=== PATIENT | female | born 2000 | race Caucasian/White ===

== ENCOUNTER 2018-05-06 18:47 | Emergency (ER) | payer OTHER ==
--- NOTE | 2018-05-06 18:55 | ER Report ---
History and Physical Time Seen By MD: 18:55 HPI/ROS CHIEF COMPLAINT: Kicked by horse HISTORY OF PRESENT ILLNESS: 17-year-old female patient presents to emergency room with complaint of being kicked by horse. Patient states that she was working with her horse when she kicks where in the thigh. Patient states that she has been having significant amounts of pain to the thigh. She states the pain is worse with ambulation. She states she did try to go up some stairs, was unable to due to the pain. She denies any numbness tingling to the foot, she denies any medication or other treatment. Patient has not tried ice her leg. Patient rates her pain while she is lying in bed a 3 out of 10. Allergies: Coded Allergies: pseudoephedrine (Verified Adverse Reaction, Unknown, 05/06/18) Complicates possible heart condition Home Meds Active Scripts Tramadol Hcl (TRAMADOL HCL) 50 Mg Tablet, 50 MG PO Q4-6H PRN for PAIN, #8 TAB Prov:JENNIFER COWAN [facility] 05/06/18 Cyclobenzaprine Hcl (CYCLOBENZAPRINE HCL) 10 Mg Tablet, 10 MG PO TID PRN for MUSCLE SPASMS, #12 TAB Prov:JENNIFER COWAN [facility] 05/06/18 Ketorolac Tromethamine (KETOROLAC TROMETHAMINE) 10 Mg Tab, 10 MG PO Q6H, #6 TAB Prov:JENNIFER COWAN [facility] 05/06/18 Reported Medications Norgestimate-Ethinyl Estradiol (TRINESSA) 1 Each Tablet, PO QDAY 05/06/18 Past Medical/Surgical History Patient has a past medical history of arrhythmias a child, frequent sinus infections, depression. Patient surgical history of mouth surgery. Reviewed Nurses Notes: Yes Constitutional Vital Sign - Last 24 Hours 05/06/18 05/06/18 05/06/18 05/06/18 18:53 18:56 19:17 19:47 Temp 97.8 Pulse 90 92 Resp 14 B/P (MAP) 141/107 141/107 (118) Pulse Ox 97 96 96 O2 Delivery Room Air Physical Exam General appearance: Alert no distress. Respiratory: Chest is non tender, lungs are clear to auscultation. Cardiac: Regular rate and rhythm. Musculoskeletal: Patient has no obvious tenderness to the lateral right thigh, there is no bruising noted. Patient has no tenderness to palpation to the knee. DIFFERENTIAL DIAGNOSIS: After history and physical exam differential diagnosis was considered for contusion, fracture, strain. Medical Decision Making EKG/Imaging Imaging Right femur Indication: Right femur pain after kicked by horse. Comparison: None available Findings: Two views of the right femur show no evidence of fracture, dislocation, or acute osseous abnormality. No bony lesion or periosteal abnormality. No joint effusion at the knee. There is no focal soft tissue abnormality. No evidence of radiopaque foreign body. IMPRESSION: 1. No acute osseous abnormality right femur. Report Dictated By: Milton Lugo at 05/06/2018 7:36 PM Report E-Signed By: Milton Lugo at 05/06/2018 7:38 PM ED Course/Re-evaluation ED Course Patient was admitted in exam room, history and physical were obtained. Differential diagnoses were considered. On examination there is no obvious tenderness to palpation. Patient had some redness, however there is no bruising. X-rays done of the right femur. That was negative. I discussed the findings with the patient. I did get her up and have her walk. She did have significant amounts of discomfort with ambulation. She states her pain went up to a 5-6 out of 10. We will go ahead and discharge patient home at this time. We will give her crutches to help with ambulation. She is to limit her weightbearing on that right leg by her pain. She is to alternate ice and heat with leg. She is taking Tylenol as if pain. We will give her an anti-inflammatory as well as a limited supply of pain medication and a muscle relaxer. She is return to the emergency room if condition worsens. She is follow-up with [facility] in 1-2 weeks if pain persists. Decision to Disposition Date: May 06, 2018 Decision to Disposition Time: 20:06 Depart Departure Latest Vital Signs Vital Signs Date Time Temp Pulse Resp B/P (MAP) Pulse Ox O2 Delivery O2 Flow Rate FiO2 05/06/18 19:47 92 96 05/06/18 18:56 141/107 (118) 05/06/18 18:53 97.8 14 Room Air Impression: Primary Impression: Contusion of leg Condition: Improved Disposition: HOME OR SELF-CARE New Scripts Tramadol Hcl (TRAMADOL HCL) 50 Mg Tablet 50 MG PO Q4-6H PRN for PAIN, #8 TAB Prov: JENNIFER COWAN 05/06/18 Cyclobenzaprine Hcl (CYCLOBENZAPRINE HCL) 10 Mg Tablet 10 MG PO TID PRN for MUSCLE SPASMS, #12 TAB Prov: JENNIEFR COWAN 05/06/18 Ketorolac Tromethamine (KETOROLAC TROMETHAMINE) 10 Mg Tab 10 MG PO Q6H, #6 TAB Prov: JENNIFER COWAN 05/06/18 Patient Instructions: Contusion in Adults (ED) Additional Instructions: Limit activity by pain. Ice the leg 2-3 times a day for 10-15 minutes. Use the crutches for the next several days to help with the pain. Return to the ER if condition worsens. Follow up with [facility] in the next 1-2 weeks. Take Tylenol or Ibuprofen as needed for pain. Problem Qualifiers Primary Impression: Contusion of leg Encounter type: initial encounter Laterality: right Qualified Codes: S80.11XA - Contusion of right lower leg, initial encounter JENNIFER COWAN [employer] May 06, 2018 18:55
[2018-05-06 18:56] VITALS: BP 141/107
[2018-05-06] MEDS ORDERED: NORG1TAB98 PO (19:09)
--- NOTE | 2018-05-06 19:41 | RADIOLOGY IMAGING REPORT ---
FACILITY: [facility] PATIENT NAME: Hattie Knott : 2000 MR: [id number] V: [id number] EXAM DATE: ORDERING PHYSICIAN: JENNIFER COWAN TECHNOLOGIST: Location: Patient: Hattie Knott : 2000 Visit/Account:[id number] Date of Sevice: 05/06/2018 Right femur Indication: Right femur pain after kicked by horse. Comparison: None available Findings: Two views of the right femur show no evidence of fracture, dislocation, or acute osseous abnormality. No bony lesion or periosteal abnormality. No joint effusion at the knee. There is no focal soft tissue abnormality. No evidence of radiopaque foreign body. IMPRESSION: 1. No acute osseous abnormality right femur. Report Dictated By: Milton Lugo at 05/06/2018 7:36 PM Report E-Signed By: Milton Lugo at 05/06/2018 7:38 PM WSN:[id number]
[2018-05-06] MEDS ORDERED: KET10 PO (20:02)
[2018-05-06] MEDS ORDERED: CYCL10TA29 PO (20:02)
[2018-05-06] MEDS ORDERED: TRAM-420 PO (20:05)
[2018-05-06] MEDS ORDERED: traMADol 50 MG TAB TH 2 TAB/BOTTLE PO ONE (20:10)
[2018-05-06] MEDS ORDERED: CYCLOBENZAPRINE HCL 10 MG TH PO ONE (20:10)
== END 2018-05-06 20:21 | disposition home or self-care (01) ==
LOC: ER 18:59
DX: S80.11XA Contusion of right lower leg, initial encounter (principal)
CPT/HCPCS: 73552; 99283; C9399

== ENCOUNTER 2018-11-09 18:31 | Inpatient (IN) | payer OTHER ==
[~2018-11-09] VITALS: Ht 165.1 cm; Wt 55.8 kg
[~2018-11-09 18:31] MED LIST: CYCL10TA29 PO; KET10 PO; NORG1TAB98 PO; TRAM-420 PO
--- NOTE | 2018-11-09 18:55 | ER Report ---
History and Physical Time Seen By MD: 18:55 Hx. of Stated Complaint: MOST PATIENT FELL OFF HORSE ONTO BACK AND HAD THE WIND KNOCKED OUT. NO LOC, NO NECK PAIN NOTED ON PALPATION. UPPER BACK PAIN IS BIGGEST COMPLAINT AT THIS TIME HPI/ROS CHIEF COMPLAINT: Back pain, left-sided pain HISTORY OF PRESENT ILLNESS: 17-year-old female patient presents to emergency room with complaint of back pain and left-sided pain. Patient states that she was riding her horse. She moved and spoke the horse. That caused the horse to run off. She'll falling off and landing on her back. Patient states she does have significant amounts of pain to the left side of her back as well as left ribs. Patient states she had the breath knocked out of her. She denies any head injury, any dizziness, any loss consciousness. Patient states she does not have any neck pain. Patient denies any pain to pelvis or hips. Patient denies any abdominal pain. REVIEW OF SYSTEMS: Respiratory: No cough, no dyspnea. Cardiovascular: No chest pain, no palpitations. Gastrointestinal: No vomiting, no abdominal pain. Musculoskeletal: As noted above Allergies: Coded Allergies: pseudoephedrine (Verified Adverse Reaction, Unknown, 05/06/18) Complicates possible heart condition Home Meds Reported Medications Norgestimate-Ethinyl Estradiol (TRINESSA) 1 Each Tablet, PO QDAY 05/06/18 Discontinued Scripts Tramadol Hcl (TRAMADOL HCL) 50 Mg Tablet, 50 MG PO Q4-6H PRN for PAIN, #8 TAB Prov:JENNIFER COWANP 05/06/18 Cyclobenzaprine Hcl (CYCLOBENZAPRINE HCL) 10 Mg Tablet, 10 MG PO TID PRN for MUSCLE SPASMS, #12 TAB Prov:JENNIFER COWANP 05/06/18 Ketorolac Tromethamine (KETOROLAC TROMETHAMINE) 10 Mg Tab, 10 MG PO Q6H, #6 TAB Prov:JENNIFER COWANP 05/06/18 Past Medical/Surgical History Patient has a past medical history of arrhythmia, depression. Patient has surgical history of mouth surgery. Reviewed Nurses Notes: Yes Constitutional Vital Sign - Last 24 Hours 11/09/18 11/09/18 11/09/18 11/09/18 18:38 18:46 19:00 19:01 Temp 98.8 Pulse 97 91 99 Resp 95 B/P (MAP) 107/67 105/69 (81) Pulse Ox 95 95 99 O2 Delivery Room Air 11/09/18 11/09/18 11/09/18 11/09/18 19:30 19:31 19:36 20:30 Pulse 98 104 B/P (MAP) 100/61 (74) 118/76 (90) Pulse Ox 93 92 11/09/18 21:00 O2 Flow Rate 2.0 Physical Exam General Appearance: The patient is alert, has no immediate need for airway protection and no current signs of toxicity. Respiratory: Chest is non tender, lungs are clear to auscultation. Patient has tenderness to the left ribs in the mid axillary line, patient also has tende rness to the left side of the upper back. Cardiac: regular rate and rhythm Gastrointestinal: Abdomen is soft and non tender, no masses, bowel sounds normal. Musculoskeletal: Neck: Neck is supple and non tender. Extremities have full range of motion and are non tender. Skin: No rashes or lesions. DIFFERENTIAL DIAGNOSIS: After history and physical exam differential diagnosis was considered for contusion, fracture, strain, sprain. Medical Decision Making Data Points Result Diagram: 11/09/18191311/09/181913 Laboratory Hematology Test 11/09/18 19:14 Red Blood Count 5.05 M/uL (4.17-5.56) Mean Corpuscular Volume 86.2 fL (80.0-96.0) Mean Corpuscular Hemoglobin 28.9 pg (26.0-33.0) Mean Corpuscular Hemoglobin Concent 33.5 g/dL (32.0-36.0) Red Cell Distribution Width 13.0 % (11.5-14.5) Mean Platelet Volume 8.4 fL (7.2-11.1) Neutrophils (%) (Auto) 72.0 % (39.4-72.5) Lymphocytes (%) (Auto) 22.2 % (17.6-49.6) Monocytes (%) (Auto) 4.6 % (4.1-12.4) Eosinophils (%) (Auto) 0.2 % (0.4-6.7) Basophils (%) (Auto) 1.0 % (0.3-1.4) Nucleated RBC Relative Count (auto) 0.0 /100WBC Neutrophils # (Auto) 6.3 K/uL (2.0-7.4) Lymphocytes # (Auto) 1.9 K/uL (1.3-3.6) Monocytes # (Auto) 0.4 K/uL (0.3-1.0) Eosinophils # (Auto) 0.0 K/uL (0.0-0.5) Basophils # (Auto) 0.1 K/uL (0.0-0.1) Nucleated RBC Absolute Count (auto) 0.00 K/uL Prothrombin Time 13.4 seconds (12.0-14.4) Prothromb Time International Ratio 1.01 Activated Partial Thromboplast Time 28 seconds (23-35) Sodium Level 139 mmol/L (137-145) Potassium Level 4.6 mmol/L (3.5-5.0) Chloride Level 105 mmol/L (98-107) Carbon Dioxide Level 26 mmol/L (22-31) Blood Urea Nitrogen 11 mg/dl (7-18) Creatinine 0.80 mg/dl (0.52-1.04) Glomerular Filtration Rate Calc > 60.0 Random Glucose 109 mg/dl (75-110) Calcium Level 9.4 mg/dl (8.4-10.2) Total Bilirubin 0.1 mg/dl (0.2-1.3) Aspartate Amino Transf (AST/SGOT) 32 U/L (0-35) Alanine Aminotransferase (ALT/SGPT) 38 U/L (0-56) Alkaline Phosphatase 64 U/L (0-126) Total Protein 7.7 g/dl (6.3-8.2) Albumin 4.5 g/dl (3.5-5.0) Amylase Level 53 U/L (0-110) Lipase 100 U/L (23-300) Human Chorionic Gonadotropin, Qual Negative (NEGATIVE) Chemistry Test 11/09/18 19:14 White Blood Count 8.8 k/uL (4.5-11.0) Red Blood Count 5.05 M/uL (4.17-5.56) Hemoglobin 14.6 g/dL (12.0-16.0) Hematocrit 43.5 % (34.0-47.0) Mean Corpuscular Volume 86.2 fL (80.0-96.0) Mean Corpuscular Hemoglobin 28.9 pg (26.0-33.0) Mean Corpuscular Hemoglobin Concent 33.5 g/dL (32.0-36.0) Red Cell Distribution Width 13.0 % (11.5-14.5) Platelet Count 274 K/uL (150-450) Mean Platelet Volume 8.4 fL (7.2-11.1) Neutrophils (%) (Auto) 72.0 % (39.4-72.5) Lymphocytes (%) (Auto) 22.2 % (17.6-49.6) Monocytes (%) (Auto) 4.6 % (4.1-12.4) Eosinophils (%) (Auto) 0.2 % (0.4-6.7) Basophils (%) (Auto) 1.0 % (0.3-1.4) Nucleated RBC Relative Count (auto) 0.0 /100WBC Neutrophils # (Auto) 6.3 K/uL (2.0-7.4) Lymphocytes # (Auto) 1.9 K/uL (1.3-3.6) Monocytes # (Auto) 0.4 K/uL (0.3-1.0) Eosinophils # (Auto) 0.0 K/uL (0.0-0.5) Basophils # (Auto) 0.1 K/uL (0.0-0.1) Nucleated RBC Absolute Count (auto) 0.00 K/uL Prothrombin Time 13.4 seconds (12.0-14.4) Prothromb Time International Ratio 1.01 Activated Partial Thromboplast Time 28 seconds (23-35) Glomerular Filtration Rate Calc > 60.0 Calcium Level 9.4 mg/dl (8.4-10.2) Total Bilirubin 0.1 mg/dl (0.2-1.3) Aspartate Amino Transf (AST/SGOT) 32 U/L (0-35) Alanine Aminotransferase (ALT/SGPT) 38 U/L (0-56) Alkaline Phosphatase 64 U/L (0-126) Total Protein 7.7 g/dl (6.3-8.2) Albumin 4.5 g/dl (3.5-5.0) Amylase Level 53 U/L (0-110) Lipase 100 U/L (23-300) Human Chorionic Gonadotropin, Qual Negative (NEGATIVE) Coagulation Test 11/09/18 19:14 Prothrombin Time 13.4 seconds Prothromb Time International Ratio 1.01 Activated Partial Thromboplast Time 28 seconds EKG/Imaging Imaging EXAMINATION: CT HEAD AND CERVICAL SPINE WITHOUT CONTRAST COMPARISON: None available HISTORY: Fell off horse. Dizziness. PROCEDURE: Noncontrast CT from the vertex through the skull base and multiplanar noncontrast cervical spine. One of the following dose optimization techniques was utilized in the performance of this exam: Automated exposure control; adjustment of the mA and/or kV according to the patient's size; or use of an iterative reconstruction technique. Specific details can be referenced in the facility's radiology CT exam operational policy. FINDINGS: CT head without contrast: Brain volume: Age-appropriate. Hemorrhage/extra-axial fluid: None. Mass effect/midline shift/edema: None. Ischemia: Ram-white differentiation is preserved. Ventricles and basal cisterns: Within normal limits. Posterior fossa: Negative. Vessels: Negative. Calvarium, skull base, and scalp: Negative. Visualized sinuses and orbits: Within normal limits. CT cervical spine without contrast: Alignment: Within normal limits. Cranio-cervical junction: Within normal limits. Vertebral bodies: Within normal limits. Posterior elements: Negative. Disc spaces: Negative. Hardware: None. Soft tissues: Negative. Visualized upper chest: As discussed on the chest CT. IMPRESSION: 1. Negative noncontrast head CT. 2. Negative cervical spine CT. 3. Thoracic trauma as discussed on the chest CT. Report was called to the referring clinician by the Imaging Cds Sales Advisor at 11/09/2018 9:09 PM. Report Dictated By: Obi Gutierres MD at 11/09/2018 8:41 PM Report E-Signed By: Obi Gutierres MD at 11/09/2018 9:12 PM ADDENDUM #1 ADDENDUM: Comparison: CT chest 11/09/2018 Report Dictated By: Randy Covarrubias DO at 11/09/2018 8:53 PM Report E-Signed By: Randy Covarrubias DO at 11/09/2018 8:54 PM ORIGINAL REPORT Technique: CHEST SINGLE AP HISTORY: fall with pain Comparison studies: None FINDINGS: Small left-sided apical pneumothorax is identified. The right lung is clear. The cardiac silhouette is unremarkable. Left-sided rib fractures are best seen on CT. IMPRESSION: 1. Small left apical pneumothorax. Report Dictated By: Randy Covarrubias DO at 11/09/2018 8:47 PM Report E-Signed By: Randy Covarrubias DO at 11/09/2018 8:50 PM Examination: CT chest, abdomen, and pelvis with contrast Comparison: None. History: fall with pain on the left chest and ribs Procedure: Multiplanar contrast-enhanced imaging of the chest, abdomen, and pelvis with 35 mL intravenous Isovue 370. One of the following dose optimization techniques was utilized in the performance of this exam: Automated exposure control; adjustment of the mA and/or kV according to the patient's size; or use of an iterative reconstruction technique. Specific details can be referenced in the facility's radiology CT exam operational policy. Findings: CT chest: Mediastinum: Cardiac chamber size is normal. No pericardial effusion. Main pulmonary artery size is normal. No thoracic aortic aneurysm. Age-appropriate anterior mediastinal thymus. No mediastinal hemorrhage. Lymph nodes: Negative. Lungs and pleura: Small left pneumothorax (less than 10%) probable small regions of peripheral contusion in the left lung. No consolidation or nodule is otherwise identified. No right-sided pneumothorax. No pulmonary edema or effusion. Airways: Negative. Diaphragm: Intact. CT abdomen and pelvis: Liver: Negative Gallbladder and biliary system: Negative Spleen: Negative Pancreas: Negative Adrenal glands: Negative Kidneys and urinary bladder: Negative Vessels: Negative Bowel and mesentery: Stomach is within normal limits. No small bowel obstruction. The appendix is incompletely visualized but there is no evidence of pericecal inflammation. Small amount of stool in the colon. No bowel or mesenteric inflammation. Pelvic organs: Negative. Free air/free fluid: None Lymph nodes: Negative Abdominal wall and subcutaneous tissues: Abdominal wall is intact. No focal abnormality within the visualized subcutaneous soft tissues. Osseous structures: Thoracolumbar spine: Negative Pelvic ring: Negative Ribs: Left lateral fifth rib nondisplaced fracture. Left sixth rib nondisplaced segmental fracture with lateral and posterior fractures. Left seventh rib segmental fracture with nondisplaced lateral and posterior fractures. Left posterior eighth rib nondisplaced fracture. Left posterior ninth rib no ndisplaced fractures. Left posterior 10th rib nondisplaced fracture. No right rib fracture. Visualized sternum, scapula, and clavicles: Negative IMPRESSION: 1. Left sixth, seventh, eighth, ninth, and 10th rib fractures with segmental fractures of the sixth and seventh ribs. 2. Small left pneumothorax with small regions of lung contusion. 3. No findings of trauma or acute disease in the abdomen or pelvis. Report was called to the referring clinician by the Imaging Cds Sales Advisor at 11/09/2018 9:09 PM. Report Dictated By: Obi Gutierres MD at 11/09/2018 8:52 PM Report E-Signed By: Obi Gutierres MD at 11/09/2018 9:11 PM EXAMINATION: CT HEAD AND CERVICAL SPINE WITHOUT CONTRAST COMPARISON: None available HISTORY: Fell off horse. Dizziness. PROCEDURE: Noncontrast CT from the vertex through the skull base and multiplanar noncontrast cervical spine. One of the following dose optimization techniques was utilized in the performance of this exam: Automated exposure control; adjustment of the mA and/or kV according to the patient's size; or use of an iterative reconstruction technique. Specific details can be referenced in the facility's radiology CT exam operational policy. FINDINGS: CT head without contrast: Brain volume: Age-appropriate. Hemorrhage/extra-axial fluid: None. Mass effect/midline shift/edema: None. Ischemia: Ram-white differentiation is preserved. Ventricles and basal cisterns: Within normal limits. Posterior fossa: Negative. Vessels: Negative. Calvarium, skull base, and scalp: Negative. Visualized sinuses and orbits: Within normal limits. CT cervical spine without contrast: Alignment: Within normal limits. Cranio-cervical junction: Within normal limits. Vertebral bodies: Within normal limits. Posterior elements: Negative. Disc spaces: Negative. Hardware: None. Soft tissues: Negative. Visualized upper chest: As discussed on the chest CT. IMPRESSION: 1. Negative noncontrast head CT. 2. Negative cervical spine CT. 3. Thoracic trauma as discussed on the chest CT. Report was called to the referring clinician by the Imaging Cds Sales Advisor at 11/09/2018 9:09 PM. Report Dictated By: Obi Gutierres MD at 11/09/2018 8:41 PM Report E-Signed By: Obi Gutierres MD at 11/09/2018 9:12 PM ED Course/Re-evaluation ED Course Patient was admitted and examined, history and physical were obtained. Differential diagnoses were considered. On examination lungs are clear, heart is regular, abdomen soft nontender. Patient does have tenderness to the left back as well as the left ribs. A single view x-ray was done which showed a small pneumothorax and non-displaced rib fractures. A CT scan of the head, cervical spine, chest abdomen and pelvis were done. Additional a small, less than 10%, pneumothorax, rib fractures through left ribs 5, 6, 7, 8, 9, 10. Also showed small lung contusions. A CBC, CMP, hCG, PT and PTT were done. Lab results were unremarkable. I discussed the findings with the patient. His my recommendation at this time the patient admitted overnight. I discussed the case with Dr. Tinsley, general surgeon, who agreed to accept the patient for admission. Patient verbalized understanding and agreement with plan. Decision to Disposition Date: Nov 09, 2018 Decision to Disposition Time: 21:24 Depart Departure Latest Vital Signs Vital Signs Date Time Temp Pulse Resp B/P (MAP) Pulse Ox O2 Delivery O2 Flow Rate FiO2 11/09/18 21:00 2.0 11/09/18 20:30 118/76 (90) 11/09/18 19:36 104 92 11/09/18 18:38 98.8 95 Room Air Impression: Primary Impression: Pneumothorax Additional Impressions: Ribs, multiple fractures Lung contusion Condition: Condition Unchanged Disposition: Admitted from ER Problem Qualifiers Primary Impression: Pneumothorax Pneumothorax type: traumatic Encounter type: initial encounter Qualified Codes: S27.0XXA - Traumatic pneumothorax, initial encounter Additional Impressions: Ribs, multiple fractures Encounter type: initial encounter Fracture type: closed Laterality: left Qualified Codes: S22.42XA - Multiple fractures of ribs, left side, initial encounter for closed fracture Lung contusion Encounter type: initial encounter Laterality: left Qualified Codes: S27.321A - Contusion of lung, unilateral, initial encounter JENNIFER COWAN Nov 09, 2018 18:55
[2018-11-09] MEDS ORDERED: MORPHINE 2 MG/ML SYR IVP ONE (19:00)
[2018-11-09] MEDS ORDERED: NS(*) 0.9% 1000 ML BAG 1,000 ML IV ONE (19:00)
[2018-11-09] MEDS ORDERED: ONDANSETRON 4 MG/2 ML VIAL IVP ONE (19:10)
[2018-11-09] MEDS ORDERED: IOPAMIDOL 76% 150 ML INFUS BTL 150 ML ONE (19:15)
[2018-11-09 19:29] LABS: PLATELET COUNT, AUTOMATED 274 K/uL (150-450)
[2018-11-09 19:46] LABS: INR 1.01
--- NOTE | 2018-11-09 20:54 | RADIOLOGY IMAGING REPORT ---
FACILITY: [facility] [place] PATIENT NAME: Hattie Knott : 2000 MR: [id number] V: [id number] EXAM DATE: ORDERING PHYSICIAN: JENNIFER COWAN TECHNOLOGIST: Location: [facility] Patient: Hattie Knott : 2000 Visit/Account:[id number] Date of Sevice: 11/09/2018 ADDENDUM #1 ADDENDUM: Comparison: CT chest 11/09/2018 Report Dictated By: Randy Covarrubias DO at 11/09/2018 8:53 PM Report E-Signed By: Randy Covarrubias DO at 11/09/2018 8:54 PM ORIGINAL REPORT Technique: CHEST SINGLE AP HISTORY: fall with pain Comparison studies: None FINDINGS: Small left-sided apical pneumothorax is identified. The right lung is clear. The cardiac si lhouette is unremarkable. Left-sided rib fractures are best seen on CT. IMPRESSION: 1. Small left apical pneumothorax. Report Dictated By: Randy Covarrubias DO at 11/09/2018 8:47 PM Report E-Signed By: Randy Covarrubias DO at 11/09/2018 8:50 PM [id number]
--- NOTE | 2018-11-09 21:14 | RADIOLOGY IMAGING REPORT ---
[facility] PATIENT NAME: Hattie Knott : 2000 MR: [id number] V: [id number] EXAM DATE: ORDERING PHYSICIAN: JENNIFER COWAN TECHNOLOGIST: Location: [facility] [place] Patient: Hattie Knott : 2000 Visit/Account:[id number] Date of Sevice: 11/09/2018 Examination: CT chest, abdomen, and pelvis with contrast Comparison: None. History: fall with pain on the left chest and ribs Procedure: Multiplanar contrast-enhanced imaging of the chest, abdomen, and pelvis with 35 mL intrave nous Isovue 370. One of the following dose optimization techniques was utilized in the performance of this exam: Automated exposure control; adjustment of the mA and/or kV according to the patient's siz e; or use of an iterative reconstruction technique. Specific details can be referenced in the [facility]'s radiology CT exam operational policy. Findings: CT chest: Mediastinum: Cardiac chamber size is normal. No pericardial effusion. Main pulmonary artery size is n ormal. No thoracic aortic aneurysm. Age-appropriate anterior mediastinal thymus. No mediastinal hemor rhage. Lymph nodes: Negative. Lungs and pleura: Small left pneumothorax (less than 10%) probable small regions of peripheral contus ion in the left lung. No consolidation or nodule is otherwise identified. No right-sided pneumothorax . No pulmonary edema or effusion. Airways: Negative. Diaphragm: Intact. CT abdomen and pelvis: Liver: Negative Gallbladder and biliary system: Negative Spleen: Negative Pancreas: Negative Adrenal glands: Negative Kidneys and urinary bladder: Negative Vessels: Negative Bowel and mesentery: Stomach is within normal limits. No small bowel obstruction. The appendix is inc ompletely visualized but there is no evidence of pericecal inflammation. Small amount of stool in the colon. No bowel or mesenteric inflammation. Pelvic organs: Negative. Free air/free fluid: None Lymph nodes: Negative Abdominal wall and subcutaneous tissues: Abdominal wall is intact. No focal abnormality within the v isualized subcutaneous soft tissues. Osseous structures: Thoracolumbar spine: Negative Pelvic ring: Negative Ribs: Left lateral fifth rib nondisplaced fracture. Left sixth rib nondisplaced segmental fracture wi th lateral and posterior fractures. Left seventh rib segmental fracture with nondisplaced lateral and posterior fractures. Left posterior eighth rib nondisplaced fracture. Left posterior ninth rib nondi splaced fractures. Left posterior 10th rib nondisplaced fracture. No right rib fracture. Visualized sternum, scapula, and clavicles: Negative IMPRESSION: 1. Left sixth, seventh, eighth, ninth, and 10th rib fractures with segmental fractures of the sixth a nd seventh ribs. 2. Small left pneumothorax with small regions of lung contusion. 3. No findings of trauma or acute disease in the abdomen or pelvis. Report was called to the referring clinician by the Imaging Site Supervisor at 11/09/2018 9:09 PM . Report Dictated By: Obi Gutierres MD at 11/09/2018 8:52 PM Report E-Signed By: Obi Gutierres MD at 11/09/2018 9:11 PM WSN:[id number]
--- NOTE | 2018-11-09 21:15 | RADIOLOGY IMAGING REPORT ---
FACILITY: [facility] [place] PATIENT NAME: Hattie Knott : 2000 MR: [id number] V: [id number] EXAM DATE: ORDERING PHYSICIAN: JENNIFER COWAN TECHNOLOGIST: [facility] Patient: Hattie Knott : 2000 Visit/Account:[id number] Date of Sevice: 11/09/2018 EXAMINATION: CT HEAD AND CERVICAL SPINE WITHOUT CONTRAST COMPARISON: None available HISTORY: Fell off horse. Dizziness. PROCEDURE: Noncontrast CT from the vertex through the skull base and multiplanar noncontrast cervical spine. One of the following dose optimization techniques was utilized in the performance of this exa m: Automated exposure control; adjustment of the mA and/or kV according to the patient's size; or use of an iterative reconstruction technique. Specific details can be referenced in the facility's rad ioly CT exam operational policy. FINDINGS: CT head without contrast: Brain volume: Age-appropriate. Hemorrhage/extra-axial fluid: None. Mass effect/midline shift/edema: None. Ischemia: Ram-white differentiation is preserved. Ventricles and basal cisterns: Within normal limits. Posterior fossa: Negative. Vessels: Negative. Calvarium, skull base, and scalp: Negative. Visualized sinuses and orbits: Within normal limits. CT cervical spine without contrast: Alignment: Within normal limits. Cranio-cervical junction: Within normal limits. Vertebral bodies: Within normal limits. Posterior elements: Negative. Disc spaces: Negative. Hardware: None. Soft tissues: Negative. Visualized upper chest: As discussed on the chest CT. IMPRESSION: 1. Negative noncontrast head CT. 2. Negative cervical spine CT. 3. Thoracic trauma as discussed on the chest CT. Report was called to the referring clinician by the Imaging Environmental Educator at 11/09/2018 9:09 PM . Report Dictated By: Obi Gutierres MD at 11/09/2018 8:41 PM Report E-Signed By: Obi Gutierres MD at 11/09/2018 9:12 PM WSN:[id number]
--- NOTE | 2018-11-09 21:16 | RADIOLOGY IMAGING REPORT ---
[facility] PATIENT NAME: Hattie Knott : 2000 MR: [id number] V: [id number] EXAM DATE: ORDERING PHYSICIAN: JENNIFER COWAN TECHNOLOGIST: Location: [facility] Patient: Hattie Knott : 2000 Visit/Account:[id number] Date of Sevice: 11/09/2018 EXAMINATION: CT HEAD AND CERVICAL SPINE WITHOUT CONTRAST COMPARISON: None available HISTORY: Fell off horse. Dizziness. PROCEDURE: Noncontrast CT from the vertex through the skull base and multiplanar noncontrast cervical spine. One of the following dose optimization techniques was utilized in the performance of this exa m: Automated exposure control; adjustment of the mA and/or kV according to the patient's size; or use of an iterative reconstruction technique. Specific details can be referenced in the facility's rad ioly CT exam operational policy. FINDINGS: CT head without contrast: Brain volume: Age-appropriate. Hemorrhage/extra-axial fluid: None. Mass effect/midline shift/edema: None. Ischemia: Ram-white differentiation is preserved. Ventricles and basal cisterns: Within normal limits. Posterior fossa: Negative. Vessels: Negative. Calvarium, skull base, and scalp: Negative. Visualized sinuses and orbits: Within normal limits. CT cervical spine without contrast: Alignment: Within normal limits. Cranio-cervical junction: Within normal limits. Vertebral bodies: Within normal limits. Posterior elements: Negative. Disc spaces: Negative. Hardware: None. Soft tissues: Negative. Visualized upper chest: As discussed on the chest CT. IMPRESSION: 1. Negative noncontrast head CT. 2. Negative cervical spine CT. 3. Thoracic trauma as discussed on the chest CT. Report was called to the referring clinician by the Imaging Drafter Patent at 11/09/2018 9:09 PM . Report Dictated By: Obi Gutierres MD at 11/09/2018 8:41 PM Report E-Signed By: Obi Gutierres MD at 11/09/2018 9:12 PM WSN:[id number]
[2018-11-09] MEDS ORDERED: KETOROLAC 30 MG/ML VIAL IVP ONE (21:50)
[2018-11-09] MEDS ORDERED: FLUSH 10 ML SYR IVP PRN (22:00)
--- NOTE | 2018-11-09 22:09 | Gen Surgery History & Physical ---
History of Present Illness Chief Complaint Fell from horse History of Present Illness This 17 year old female was riding her horse and fell off. No LOC. Arrived to [facility] ED c/o left chest pain. NO other complaints. She was evaluated with CT hea d, neck, chest, abdomen, and pelvis. These studies were remarkable for nondisplaced left rib fractures and small CT only pneumothorax. She will be admitted for pain control and repeat CXR in am. History Home Meds Reported Medications Norgestimate-Ethinyl Estradiol (TRINESSA) 1 Each Tablet, PO QDAY 05/06/18 Discontinued Scripts Tramadol Hcl (TRAMADOL HCL) 50 Mg Tablet, 50 MG PO Q4-6H PRN for PAIN, #8 TAB Prov:JENNIFER COWAN [facility] 05/06/18 Cyclobenzaprine Hcl (CYCLOBENZAPRINE HCL) 10 Mg Tablet, 10 MG PO TID PRN for MUSCLE SPASMS, #12 TAB Prov:JENNIFER COWAN [facility] 05/06/18 Ketorolac Tromethamine (KETOROLAC TROMETHAMINE) 10 Mg Tab, 10 MG PO Q6H, #6 TAB Prov:JENNIFER COWAN [facility] 05/06/18 Allergies: Coded Allergies: pseudoephedrine (Verified Adverse Reaction, Unknown, 05/06/18) Complicates possible heart condition Patient History: Patient reports no known family medical history. Review of Systems All Systems Reviewed/Normal: Yes, Except as Noted Cardiovascular: Chest Pain Exam General Appearance: Alert, Awake, No Acute Distress, Afebrile Neuro: No Gross deficits Eyes: PERRLA ENT: Moist Mucous Membranes Cardiovascular: Normal Rhythm & Peripheral Pulses Respiratory: No Respiratory Distress, Clear to Auscultation GI: Abd Soft and Non-Tender Extremities: Soft and Non Tender Integumentary: Skin Intact without Lesion / Mass Psych: Alert & Oriented X3, Appropriate Mood & Affect Medical Decision Making Data Points Result Diagram: 11/09/18191311/09/181913 Assessment and Plan Problems: (1) Ribs, multiple fractures Status: Acute Assessment & Plan: admit for pain control and pulmonary toilet. (2) Pneumothorax Status: Acute Assessment & Plan: small CT only PTX, will leave on O2 at 2 liters/min NC. Repeat CXR in am. Venous Thromboembolism VTE Risk Physician Assess for VTE Risk: Yes Patient's VTE Risk: Low VTE Diagnostic Test 2 Days Prior to Admit: No Antithrombotics Is Pt On Any Antithrombotics?: No Prophylaxis Tx Contraindicated Pharmacological Contraindicati: Pt at Low Risk for VTE Mechanical Contraindications: Pt at Low Risk for VTE Problem Qualifiers (1) Ribs, multiple fractures: Encounter type: initial encounter Fracture type: closed Laterality: left Qualified Codes: S22.42XA - Multiple fractures of ribs, left side, initial encounter for closed fracture (2) Pneumothorax: Pneumothorax type: traumatic Encounter type: initial encounter Qualified Codes: S27.0XXA - Traumatic pneumothorax, initial encounter LANA ALLEN MD Nov 09, 2018 22:09
[2018-11-09 23:35] VITALS: BP 116/80
[2018-11-10] MEDS: KETOROLAC 30 MG/ML VIAL IVP SCH ×5 (00:07→23:24)
[2018-11-10 03:15] VITALS: BP 104/60
[2018-11-10] MEDS: ACETAMINOPHEN 325 MG TAB PO PRN ×2 (03:21→07:34)
[2018-11-10 05:58] LABS: PLATELET COUNT, AUTOMATED 236 K/uL (150-450)
--- NOTE | 2018-11-10 06:33 | RADIOLOGY IMAGING REPORT ---
FACILITY: PATIENT NAME: Hattie Knott : 2000 MR: [id number] V: [id number] EXAM DATE: ORDERING PHYSICIAN: LANA ALLEN TECHNOLOGIST: Location: [facility] Patient: Hattie Knott : 2000 Visit/Account:[id number] Date of Sevice: 11/10/2018 CHEST SINGLE AP 11/10/2018 05:00 hours. HISTORY: Follow-up pneumothorax. COMPARISON: 11/09/2018. TECHNIQUE: Portable AP view of the chest. FINDINGS: Tubes/lines/hardware: None. Pulmonary/pleura: Small left apical pneumothorax has increased in size. Lung apex is at the level of the third posterior left rib, previously at the level of the second posterior left rib. Lungs are klaus ar. No pleural effusion. Cardiomediastinal: Cardiac and mediastinal silhouettes are within normal limits. Bones/soft tissues: No acute osseous abnormality. The visible abdomen is normal. IMPRESSION: 1. Interval increase in size of the small left apical pneumothorax. The finding of enlarging small left apical pneumothorax was discussed with Yessica, the patient's nurse , at 11/10/2018 6:30 AM. Report Dictated By: Quin Ojeda at 11/10/2018 6:25 AM Report E-Signed By: Quin Ojeda at 11/10/2018 6:30 AM WSN:[id number]
[2018-11-10 07:30] VITALS: BP 114/67
[2018-11-10] MEDS: DOCUSATE SODIUM 100 MG CAP PO SCH ×2 (08:23→20:41)
[2018-11-10 10:40] VITALS: Ht 165.1 cm; Wt 55.8 kg
[2018-11-10] MEDS ORDERED: oxyCODONE HCL 5 MG CAP PO PRN (10:55)
--- NOTE | 2018-11-10 11:13 | General Surgery Progress Note ---
Subjective Progress Notes Subjective Having expected pain with movement and deep inspiration. Physical Exam Vital Signs Date Time Temp Pulse Resp B/P (MAP) Pulse Ox O2 Delivery O2 Flow Rate FiO2 11/10/18 07:30 98.6 85 16 114/67 (83) 100 Nasal Cannula 1.0 Intake and Output 11/10/18 07:00 Intake Total 1000 ml Balance 1000 ml Intake IV Total 1000 ml # Voids 1 General Appearance: Alert, Awake, No Acute Distress, Afebrile Neuro: No Gross deficits Eyes: PERRLA ENT: Moist Mucous Membranes Cardiovascular: Regular Rate and Rhythm Respiratory: No Respiratory Distress (Decreased BS both bases but L > R) GI: Soft and Non-Tender Extremities: Soft and Non Tender Psych: Alert & Oriented X3, Appropriate Mood & Affect Result Diagram: 11/10/18 0530 11/09/181913 Assessment and Plan Problems: (1) Ribs, multiple fractures Status: Acute Assessment & Plan: 11/09/18: admit for pain control and pulmonary toilet. 11/10/18: Continue Toradol, Will Add Tylenol 1000 mg PO q 6 h scheduled and Oxycodone 5 mg q 6 h prn. Only getting IS to 600 this am. Encouraged to continue to work on IS. Repeat CXR in am. (2) Pneumothorax Status: Acute Assessment & Plan: 11/09/18: Small CT only PTX, will leave on O2 at 2 liters/min NC. Repeat CXR in am. 11/10/18: CXR shows apical PTX approximately 2 cm from lung edge to chest wall, no effusion. I discussed with patient and her mother by telephone the treatment options of observation versus chest tube insertion. I feel comfortable watching this small PTX at this time with plan to repeat CXR in am, and prn any symptoms. If this is larger on am CXR then I will place a pigtail chest drain to suction. Will also increase her oxygen to 4 liters.min to see if this helps the PTX to resolve. Time Spent: < 30 min Exam Sepsis Risk: No Definite Risk Problem Qualifiers (1) Ribs, multiple fractures: Encounter type: initial encounter Fracture type: closed Laterality: left Qualified Codes: S22.42XA - Multiple fractures of ribs, left side, initial encounter for closed fracture (2) Pneumothorax: Pneumothorax type: traumatic Encounter type: initial encounter Qualified Codes: S27.0XXA - Traumatic pneumothorax, initial encounter LANA ALLEN MD Nov 10, 2018 11:13
[2018-11-10] MEDS ORDERED: ACETAMINOPHEN 325 MG TAB PO SCH (12:00)
[2018-11-10] MEDS: ACETAMINOPHEN 500 MG TAB PO SCH ×3 (12:17→23:24)
[2018-11-10 12:25] VITALS: BP 117/79
[2018-11-10 15:20] VITALS: BP 116/82
--- NOTE | 2018-11-10 16:07 | NUR ---
Physical Therapy Impression PT goals met with initial visit. Pt demonstrates independence with bed mobility and transfers. Pt ambulated functional distance for household and community mobility. Pt requires no further skilled physical therapy but will continue to benefit from ambulation with nursing services. PT goals: 1. Pt to ambulate 150' with supplemental O2 and no other AD. 2. Pt to perform bed mobility and transfers independently. Physical Therapy Goals Patient's Goals
[2018-11-10] MEDS ORDERED: LEVO1TAB68 PO (18:41)
[2018-11-10 18:55] VITALS: BP 109/74
[2018-11-10 23:29] VITALS: BP 100/73
[2018-11-11] MEDS: ONDANSETRON 4 MG/2 ML VIAL IVP PRN ×3 (00:38→21:55)
[2018-11-11] MEDS: KETOROLAC 30 MG/ML VIAL IVP SCH ×4 (05:13→23:19)
[2018-11-11] MEDS: ACETAMINOPHEN 500 MG TAB PO SCH ×4 (05:13→23:19)
[2018-11-11 05:16] VITALS: BP 114/84
[2018-11-11 05:31] LABS: PLATELET COUNT, AUTOMATED 208 K/uL (150-450)
--- NOTE | 2018-11-11 06:51 | RADIOLOGY IMAGING REPORT ---
FACILITY: [facility] - [place], [place] PATIENT NAME: Hattie Knott : 2000 MR: [id number] V: [id number] EXAM DATE: ORDERING PHYSICIAN: LANA ALLEN TECHNOLOGIST: Location: [facility] [place] Patient: Hattie Knott : 2000 Visit/Account:[id number] Date of Sevice: 11/11/2018 PORTABLE CHEST: Indication: Pneumothorax. Technique: A single frontal film was obtained. Comparison: 11/10/2018 Skeletal and soft tissue structures: Intact and unchanged. Heart and mediastinum: Stable. Lung bowen: No focal opacities. Pleural spaces: A small left apical pneumothorax persists, slightly smaller than the previous study. No evidence of effusion. Impression: Small left apical pneumothorax, decreasing in size. Report Dictated By: Qamar Mitchell MD at 11/11/2018 6:44 AM Report E-Signed By: Qamar Mitchell MD at 11/11/2018 6:46 AM WSN:[id number]
[2018-11-11 07:23] VITALS: BP 111/79
[2018-11-11] MEDS: DOCUSATE SODIUM 100 MG CAP PO SCH ×2 (08:24→20:41)
[2018-11-11 10:50] VITALS: BP 110/66
--- NOTE | 2018-11-11 11:06 | General Surgery Progress Note ---
Subjective Progress Notes Subjective had episode of nausea relieved with Zofran. No new complaints. IS now up to 1100 Physical Exam Vital Signs Date Time Temp Pulse Resp B/P (MAP) Pulse Ox O2 Delivery O2 Flow Rate FiO2 11/11/18 10:50 98.6 62 16 110/66 (81) 98 Nasal Cannula 4.0 Intake and Output 11/11/18 07:00 Intake Total 1440 ml Balance 1440 ml Intake Oral 1440 ml # Voids 3 General Appearance: Alert, Awake, No Acute Distress, Afebrile Neuro: No Gross deficits ENT: Moist Mucous Membranes Cardiovascular: Regular Rate and Rhythm Respiratory: No Respiratory Distress GI: Soft and Non-Tender Extremities: Soft and Non Tender Psych: Alert & Oriented X3, Appropriate Mood & Affect Result Diagram: 11/11/18 0508 11/09/18 1914 Assessment and Plan Problems: (1) Ribs, multiple fractures Status: Acute Assessment & Plan: 11/09/18: admit for pain control and pulmonary toilet. 11/10/18: Continue Toradol, Will Add Tylenol 1000 mg PO q 6 h scheduled and Oxycodone 5 mg q 6 h prn. Only getting IS to 600 this am. Encouraged to continue to work on IS. Repeat CXR in am. 11/11/18: CXR shows PTX to be stable in size, continue current Pain regimen, continue vigorous pulmonary toilet. Ambulate QID, Repeat CXR in am. Mother arrived from [place], updated on current plan, all of her questions were answered. (2) Pneumothorax Status: Acute Assessment & Plan: 11/09/18: Small CT only PTX, will leave on O2 at 2 liters/min NC. Repeat CXR in am. 11/10/18: CXR shows apical PTX approximately 2 cm from lung edge to chest wall, no effusion. I discussed with patient and her mother by telephone the treatment options of observation versus chest tube insertion. I feel comfortable watching this small PTX at this time with plan to repeat CXR in am, and prn any symptoms. If this is larger on am CXR then I will place a pigtail chest drain to suction. Will also increase her oxygen to 4 liters.min to see if this helps the PTX to resolve. Time Spent: < 30 min Exam Sepsis Risk: No Definite Risk Problem Qualifiers (1) Ribs, multiple fractures: Encounter type: initial encounter Fracture type: closed Laterality: left Qualified Codes: S22.42XA - Multiple fractures of ribs, left side, initial encounter for closed fracture (2) Pneumothorax: Pneumothorax type: traumatic Encounter type: initial encounter Qualified Codes: S27.0XXA - Traumatic pneumothorax, initial encounter LANA ALLEN MD Nov 11, 2018 11:06
--- NOTE | 2018-11-11 11:29 | NUR ---
Room air trial not completed due to standing MD order to maintain O2 at 4L
[2018-11-11 14:42] VITALS: BP 114/89
[2018-11-11 19:48] VITALS: BP 102/79
[2018-11-11 23:17] VITALS: BP 107/56
[2018-11-12 03:26] VITALS: BP 104/74
[2018-11-12] MEDS: ACETAMINOPHEN 500 MG TAB PO SCH ×4 (05:20→23:28)
[2018-11-12] MEDS: KETOROLAC 30 MG/ML VIAL IVP SCH ×4 (05:20→23:28)
[2018-11-12] MEDS: ONDANSETRON 4 MG/2 ML VIAL IVP PRN (05:31)
--- NOTE | 2018-11-12 06:33 | RADIOLOGY IMAGING REPORT ---
FACILITY: [facility] [place] PATIENT NAME: Hattie Knott : 2000 MR: [id number] V: [id number] EXAM DATE: ORDERING PHYSICIAN: LANA ALLEN TECHNOLOGIST: Location: [facility] [place] Patient: Hattie Knott : 2000 Visit/Account:[id number] Date of Sevice: 11/12/2018 PORTABLE CHEST: Indication: Pneumothorax. Technique: A single frontal film was obtained. Comparison: 11/11/2018 Skeletal and soft tissue structures: Intact and unchanged. Heart and mediastinum: Within normal limits. Lung bowen: No focal or diffuse opacities. Pleural spaces: The left apical pneumothorax is significantly smaller. There is no evidence of effusi on. Impression: The left apical pneumothorax is further decreased in size. No new focal findings. Report Dictated By: Qamar Mitchell MD at 11/12/2018 6:27 AM Report E-Signed By: Qamar Mitchell MD at 11/12/2018 6:29 AM WSN:[email or web address]
[2018-11-12 07:08] VITALS: BP 107/82
[2018-11-12] MEDS: DOCUSATE SODIUM 100 MG CAP PO SCH ×2 (08:21→20:50)
--- NOTE | 2018-11-12 09:59 | General Surgery Progress Note ---
Subjective Progress Notes Subjective Had a rough night due to pain. Still with episodes of nausea. Tolerating PO, had a steak last night. Had BM yesterday. Able to get IS up to 1500 this am. Physical Exam Vital Signs Date Time Temp Pulse Resp B/P (MAP) Pulse Ox O2 Delivery O2 Flow Rate FiO2 11/12/18 07:28 99 Nasal Cannula 4.0 11/12/18 07:08 98.5 71 20 107/82 (90) Intake and Output 11/12/18 07:00 Intake Total 1140 ml Balance 1140 ml Intake Oral 1140 ml # Voids 2 General Appearance: Alert, Awake, No Acute Distress, Afebrile Neuro: No Gross deficits ENT: Moist Mucous Membranes Cardiovascular: Regular Rate and Rhythm Respiratory: No Respiratory Distress GI: Soft and Non-Tender Extremities: Soft and Non Tender Psych: Alert & Oriented X3, Appropriate Mood & Affect Result Diagram: 11/11/18 0508 11/09/18 1914 Imaging CXR shows PTX decreasing in size, no effusion. Assessment and Plan Problems: (1) Ribs, multiple fractures Status: Acute Assessment & Plan: 11/09/18: admit for pain control and pulmonary toilet. 11/10/18: Continue Toradol, Will Add Tylenol 1000 mg PO q 6 h scheduled and Oxycodone 5 mg q 6 h prn. Only getting IS to 600 this am. Encouraged to continue to work on IS. Repeat CXR in am. 11/11/18: CXR shows PTX to be stable in size, continue current Pain regimen, continue vigorous pulmonary toilet. Ambulate QID, Repeat CXR in am. Mother satish castro from [place], updated on current plan, all of her questions were answered. 11/12/18: Had a rough night due to pain. No SOB. CXR shows PTX to be decreasing in size, no effusion. IS now up to 1500. Tolerating PO, Had a BM. Still with occasional nausea. Will add Protonix. I think she is stable and if it not for her pain control issue last night she could be discharged today. Mother requests she stay at least another night to make sure her pain control issues improve. (2) Pneumothorax Status: Acute Assessment & Plan: 11/09/18: Small CT only PTX, will leave on O2 at 2 liters/min NC. Repeat CXR in am. 11/10/18: CXR shows apical PTX approximately 2 cm from lung edge to chest wall, no effusion. I discussed with patient and her mother by telephone the treatment options of observation versus chest tube insertion. I feel comfortable watching this small PTX at this time with plan to repeat CXR in am, and prn any symptoms. If this is larger on am CXR then I will place a pigtail chest drain to suction. Will also increase her oxygen to 4 liters.min to see if this helps the PTX to resolve. 11/11/18: PTX stable, no effusion. 11/12/18: PTX decreasing in size, no effusion or infiltrate. Time Spent: < 30 min Exam Sepsis Risk: No Definite Risk Problem Qualifiers (1) Ribs, multiple fractures: Encounter type: initial encounter Fracture type: closed Laterality: left Qualified Codes: S22.42XA - Multiple fractures of ribs, left side, initial encounter for closed fracture (2) Pneumothorax: Pneumothorax type: traumatic Encounter type: initial encounter Qualified Codes: S27.0XXA - Traumatic pneumothorax, initial encounter LANA ALLEN MD Nov 12, 2018 09:59
[2018-11-12] MEDS: PANTOPRAZOLE SOD 20 MG TABEC PO SCH (10:09)
[2018-11-12 11:17] VITALS: BP 114/91
[2018-11-12 14:40] VITALS: BP 114/70
[2018-11-12 19:23] VITALS: BP 116/72
[2018-11-12 23:21] VITALS: BP 112/78
[2018-11-13 02:42] VITALS: BP 100/70
[2018-11-13] MEDS: ONDANSETRON 4 MG/2 ML VIAL IVP PRN (03:31)
[2018-11-13] MEDS: KETOROLAC 30 MG/ML VIAL IVP SCH ×2 (06:19→12:05)
[2018-11-13] MEDS: ACETAMINOPHEN 500 MG TAB PO SCH ×3 (06:19→18:05)
[2018-11-13 07:10] VITALS: BP 109/73
[2018-11-13] MEDS: PANTOPRAZOLE SOD 20 MG TABEC PO SCH (10:05)
[2018-11-13] MEDS: DOCUSATE SODIUM 100 MG CAP PO SCH ×2 (10:06→20:47)
[2018-11-13 11:09] VITALS: BP 112/73
[2018-11-13 14:42] VITALS: BP 104/79
[2018-11-13 15:22] VITALS: BP 105/75
[2018-11-13] MEDS ORDERED: KETOROLAC 30 MG/ML VIAL IVP PRN (15:40)
--- NOTE | 2018-11-13 15:51 | General Surgery Progress Note ---
Subjective Progress Notes Subjective pain controlled, no sob. Physical Exam Vital Signs Date Time Temp Pulse Resp B/P (MAP) Pulse Ox O2 Delivery O2 Flow Rate FiO2 11/13/18 15:22 98.7 83 20 105/75 (85) 100 Nasal Cannula 4.0 Intake and Output 11/13/18 07:00 Intake Total 320 ml Balance 320 ml Intake Oral 320 ml General Appearance: No Acute Distress Cardiovascular: Other (reg rate) Respiratory: No Respiratory Distress Result Diagram: 11/11/18 0508 11/09/18 1914 Assessment and Plan Problems: (1) Ribs, multiple fractures Status: Acute Assessment & Plan: 11/09/18: admit for pain control and pulmonary toilet. 11/10/18: Continue Toradol, Will Add Tylenol 1000 mg PO q 6 h scheduled and Oxycodone 5 mg q 6 h prn. Only getting IS to 600 this am. Encouraged to continue to work on IS. Repeat CXR in am. 11/11/18: CXR shows PTX to be stable in size, continue current Pain regimen, continue vigorous pulmonary toilet. Ambulate QID, Repeat CXR in am. Mother arrived from [place], updated on current plan, all of her questions were answered. 11/12/18: Had a rough night due to pain. No SOB. CXR shows PTX to be decreasing in size, no effusion. IS now up to 1500. Tolerating PO, Had a BM. Still with occasional nausea. Will add Protonix. I think she is stable and if it not for her pain control issue last night she could be discharged today. Mother requests she stay at least another night to make sure her pain control issues improve. 11/13/18: Doing well. Concerned about being in pain again tonight. Will wean IV pain meds and likely send home in am. (2) Pneumothorax Status: Acute Assessment & Plan: 11/09/18: Small CT only PTX, will leave on O2 at 2 liters/min NC. Repeat CXR in am. 11/10/18: CXR shows apical PTX approximately 2 cm from lung edge to chest wall, no effusion. I discussed with patient and her mother by telephone the treatment options of observation versus chest tube insertion. I feel comfortable watching this small PTX at this time with plan to repeat CXR in am, and prn any symptoms. If this is larger on am CXR then I will place a pigtail chest drain to suction. Will also increase her oxygen to 4 liters.min to see if this helps the PTX to resolve. 11/11/18: PTX stable, no effusion. 11/12/18: PTX decreasing in size, no effusion or infiltrate. Exam Sepsis Risk: No Definite Risk Problem Qualifiers (1) Ribs, multiple fractures: Encounter type: initial encounter Fracture type: closed Laterality: left Qualified Codes: S22.42XA - Multiple fractures of ribs, left side, initial encounter for closed fracture (2) Pneumothorax: Pneumothorax type: traumatic Encounter type: initial encounter Qualified Codes: S27.0XXA - Traumatic pneumothorax, initial encounter FLIP LYNNE Nov 13, 2018 15:50
[2018-11-13] MEDS: IBUPROFEN 600 MG TAB PO PRN (18:06)
[2018-11-13 19:14] VITALS: BP 103/62
[2018-11-14] MEDS: ACETAMINOPHEN 500 MG TAB PO SCH ×3 (01:28→12:15)
[2018-11-14] MEDS: IBUPROFEN 600 MG TAB PO PRN ×3 (01:28→12:16)
[2018-11-14 01:30] VITALS: BP 100/67
--- NOTE | 2018-11-14 07:00 | General Surgery Progress Note ---
Subjective Progress Notes Subjective doing well. slept last night with just motrin and tylenol. no sob. Physical Exam Vital Signs Date Time Temp Pulse Resp B/P (MAP) Pulse Ox O2 Delivery O2 Flow Rate FiO2 11/14/18 01:30 87 16 100/67 (78) 100 Nasal Cannula 4.0 11/13/18 19:14 98.4 Intake and Output 11/14/18 07:00 Intake Total 1120 ml Balance 1120 ml Intake Oral 1120 ml # Voids 3 General Appearance: No Acute Distress Cardiovascular: Other (reg rate) Respiratory: No Respiratory Distress Result Diagram: 11/11/18 0508 Assessment and Plan Problems: (1) Ribs, multiple fractures Status: Acute Assessment & Plan: 11/09/18: admit for pain control and pulmonary toilet. 11/10/18: Continue Toradol, Will Add Tylenol 1000 mg PO q 6 h scheduled and Oxycodone 5 mg q 6 h prn. Only getting IS to 600 this am. Encouraged to continue to work on IS. Repeat CXR in am. 11/11/18: CXR shows PTX to be stable in size, continue current Pain regimen, continue vigorous pulmonary toilet. Ambulate QID, Repeat CXR in am. Mother arrived from [place], updated on current plan, all of her questions were answered. 11/12/18: Had a rough night due to pain. No SOB. CXR shows PTX to be decreasing in size, no effusion. IS now up to 1500. Tolerating PO, Had a BM. Still with occasional nausea. Will add Protonix. I think she is stable and if it not for her pain control issue last night she could be discharged today. Mother requests she stay at least another night to make sure her pain control issues improve. 11/13/18: Doing well. Concerned about being in pain again tonight. Will wean IV pain meds and likely send home in am. 11/14/18: Doing well. Pain controlled with motrin and tylenol. D/c oxygen. Home this am. (2) Pneumothorax Status: Acute Assessment & Plan: 11/09/18: Small CT only PTX, will leave on O2 at 2 liters/min NC. Repeat CXR in am. 11/10/18: CXR shows apical PTX approximately 2 cm from lung edge to chest wall, no effusion. I discussed with patient and her mother by telephone the treatment options of observation versus chest tube insertion. I feel comfortable watching this small PTX at this time with plan to repeat CXR in am, and prn any symptoms. If this is larger on am CXR then I will place a pigtail chest drain to suction. Will also increase her oxygen to 4 liters.min to see if this helps the PTX to resolve. 11/11/18: PTX stable, no effusion. 11/12/18: PTX decreasing in size, no effusion or infiltrate. Exam Sepsis Risk: No Definite Risk Problem Qualifiers (1) Ribs, multiple fractures: Encounter type: initial encounter Fracture type: closed Laterality: left Qualified Codes: S22.42XA - Multiple fractures of ribs, left side, initial encounter for closed fracture (2) Pneumothorax: Pneumothorax type: traumatic Encounter type: initial encounter Qualified Codes: S27.0XXA - Traumatic pneumothorax, initial encounter FLIP LYNNE Nov 14, 2018 07:00
[2018-11-14 07:05] VITALS: BP 100/64
[2018-11-14] MEDS: ONDANSETRON 4 MG/2 ML VIAL IVP PRN (08:32)
[2018-11-14] MEDS: DOCUSATE SODIUM 100 MG CAP PO SCH (09:53)
[2018-11-14] MEDS: PANTOPRAZOLE SOD 20 MG TABEC PO SCH (09:53)
[2018-11-14 10:43] VITALS: BP 111/67
[2018-11-14] MEDS ORDERED: TRAM-420 PO (11:10)
[2018-11-14] MEDS ORDERED: ONDA4TAB9 PO (11:11)
--- NOTE | 2018-11-14 11:13 | Hospitalist Depart ---
Discharge Summary Reason for Hosp/Final Diag: (1) Ribs, multiple fractures Status: Acute Hospital Course & Plan: 11/09/18: admit for pain control and pulmonary toilet. 11/10/18: Continue Toradol, Will Add Tylenol 1000 mg PO q 6 h scheduled and Oxycodone 5 mg q 6 h prn. Only getting IS to 600 this am. Encouraged to co ntinue to work on IS. Repeat CXR in am. 11/11/18: CXR shows PTX to be stable in size, continue current Pain regimen, continue vigorous pulmonary toilet. Ambulate QID, Repeat CXR in am. Mother arrived from [place], updated on current plan, all of her questions were answered. 11/12/18: Had a rough night due to pain. No SOB. CXR shows PTX to be decreasing in size, no effusion. IS now up to 1500. Tolerating PO, Had a BM. Still with occasional nausea. Will add Protonix. I think she is stable and if it not for her pain control issue last night she could be discharged today. Mother requests she stay at least another night to make sure her pain control issues improve. 11/13/18: Doing well. Concerned about being in pain again tonight. Will wean IV pain meds and likely send home in am. 11/14/18: Doing well. Pain controlled with motrin and tylenol. D/c oxygen. Home this am. (2) Pneumothorax Status: Acute Hospital Course & Plan: 11/09/18: Small CT only PTX, will leave on O2 at 2 liters/min NC. Repeat CXR in am. 11/10/18: CXR shows apical PTX approximately 2 cm from lung edge to chest wall, no effusion. I discussed with patient and her mother by telephone the treatment options of observation versus chest tube insertion. I feel comfortable watching this small PTX at this time with plan to repeat CXR in am, and prn any symptoms. If this is larger on am CXR then I will place a pigtail chest drain to suction. Will also increase her oxygen to 4 liters.min to see if this helps the PTX to resolve. 11/11/18: PTX stable, no effusion. 11/12/18: PTX decreasing in size, no effusion or infiltrate. Departure Weight (Pounds): 123 Result Diagram: 11/11/18 0508 11/09/18 1914 Condition: Improved Discharge: Home Discharge Instructions Home Meds Active Scripts Ondansetron 4 Mg Odt (ONDANSETRON 4 MG ODT) 4 Mg Tab.rapdis, 4 MG PO ONCE for Nausea, #20 TAB 1 Refill Prov:FLIP ASCENCIO 11/14/18 Tramadol Hcl (TRAMADOL HCL) 50 Mg Tablet, 50 MG PO Q6H for PAIN, #20 TAB Prov:FLIP ASCENCIO 11/14/18 Reported Medications Levonorgestrel-Ethin Estradiol (Vienva-28 Tablet) 0.1 Mg-20 Mcg Tablet, 1 TAB PO DAILY 11/10/18 Discontinued Reported Medications Norgestimate-Ethinyl Estradiol (TRINESSA) 1 Each Tablet, PO QDAY 05/06/18 Discontinued Scripts Tramadol Hcl (TRAMADOL HCL) 50 Mg Tablet, 50 MG PO Q4-6H PRN for PAIN, #8 TAB Prov:JENNIFER COWAN [facility] 05/06/18 Cyclobenzaprine Hcl (CYCLOBENZAPRINE HCL) 10 Mg Tablet, 10 MG PO TID PRN for MUSCLE SPASMS, #12 TAB Prov:JENNIFER COWAN [facility] 05/06/18 Ketorolac Tromethamine (KETOROLAC TROMETHAMINE) 10 Mg Tab, 10 MG PO Q6H, #6 TAB Prov:JENNIFER COWAN [facility] 05/06/18 Diet: Regular Activity: As Tolerated Special Instructions: scheduled ibuprofen - 600 mg 3x/day for 10 days. take with food. tylenol as needed. f/u dr. evan ascencio 10 days ([phone]). Venous Thromboembolism Antithrombotics Is Pt On Any Antithrombotics?: No Problem Qualifiers (1) Ribs, multiple fractures: Encounter type: initial encounter Fracture type: closed Laterality: left Qualified Codes: S22.42XA - Multiple fractures of ribs, left side, initial encounter for closed fracture (2) Pneumothorax: Pneumothorax type: traumatic Encounter type: initial encounter Qualified Codes: S27.0XXA - Traumatic pneumothorax, initial encounter FLIP ASCENCIO Nov 14, 2018 11:13
== END 2018-11-14 12:35 | disposition home or self-care (01) | DRG 200 ==
LOC: ER 18:36 → OBSVTOIN 22:04 → INTOOBSV 22:04 → MED 22:04 → UNDOADMIN 22:04 → MED 22:05 → UNDODISIN 11-14 12:35
PROVIDERS: ADMIT Surgery; ATTEND Surgery
DX: S27.0XXA Traumatic pneumothorax, initial encounter (principal); S22.42XA Multiple fractures of ribs, left side, initial encounter for closed fracture; S27.321A Contusion of lung, unilateral, initial encounter; F32.9 Major depressive disorder, single episode, unspecified; Z88.8 Allergy status to other drugs, medicaments and biological substances; V80.010A Animal-rider injured by fall from or being thrown from horse in noncollision accident, initial encounter
CPT/HCPCS: 36415; 70450; 71045; 71260; 72125; 74177; 82040; 82150; 82247; 82310; 82374; 82435; 82565; 82947; 83690; 84075; 84132; 84155; 84295; 84450; 84460; 84520; 84703; 85025; 85610; 85730; 96374; 96375; 96376; 97161; 99285; J1885; J2270; J2405; J7030; Q9967